=== PATIENT | female | born 1995 | race Caucasian/White ===

== ENCOUNTER 2017-03-04 06:04 | Inpatient (IN) ==
[2017-03-04] MEDS ORDERED: PITOCIN 30 UNITS/LR 30 UNITS/500 ML IV.SOLN IV SCH (06:15)
[2017-03-04] MEDS ORDERED: PEPCID PO PRN (06:15)
[2017-03-04] MEDS ORDERED: PEPCID IV PRN (06:15)
[2017-03-04] MEDS ORDERED: ZOFRAN IV PRN (06:15)
[2017-03-04] MEDS ORDERED: LR 1,000 ML IV SCH (06:15)
[2017-03-04] MEDS ORDERED: KEFZOL 1 GM/D5W 1 GM/50 ML IVPB IV PRN (06:15)
[2017-03-04] MEDS ORDERED: STADOL IV PRN (06:15)
[2017-03-04] MEDS ORDERED: SODIUM CHLORIDE 0.9% INJ SCH (06:15)
[2017-03-04] MEDS ORDERED: TYLENOL PO PRN (06:15)
[2017-03-04] MEDS ORDERED: LR 1,000 ML ONE (06:23)
[2017-03-04 06:45] LABS: URINE SOURCE VOIDED
[2017-03-04 06:45] LABS: MANUAL DIFF NEEDED? NO
[2017-03-04 06:51] LABS: BASO% 0.4 % (0.0-0.8); EOS# 0.36 X1000 (0.0-0.7); EOS% 3.2 % (0.0-10.0); HEMATOCRIT 36.2 % (37.0-47.0); HEMOGLOBIN 11.8 g/dL (12.0-16.0); IMM GRAN# 0.09 X1000 (0.0-0.04); IMM GRAN% 0.8 % (0.0-0.5); LYMPH# 2.06 X1000 (1.2-3.4); LYMPH% 18.3 % (20.5-51.1); MCH 30.3 PG (27-31); MCHC 32.6 g/dL (33-37); MCV 92.8 FL (81-99); MONO# 0.93 X1000 (0.11-0.59); MONO% 8.3 % (1.7-9.3); MPV 10.3 FL (7.4-10.4); PLT 149 X1000 (130-400)
[2017-03-04 07:07] LABS: BILIRUBIN URINE NEGATIVE (NEGATIVE); BLOOD URINE NEGATIVE (NEGATIVE); CLARITY SL. CLOUDY (CLEAR); COLOR YELLOW; GLUCOSE URINE NEGATIVE (NEGATIVE); LEUKOCYTES URINE 2+ (NEGATIVE); NITRITE URINE NEGATIVE (NEGATIVE); PROTEIN URINE NEGATIVE (NEGATIVE); SP GRAVITY URINE 1.015; UROBILINOGEN URINE NORMAL
[2017-03-04] MEDS ORDERED: FENTANYL-BUPIV-NS 2 MCG-0.1% 200 ML EPIDURAL PRN (07:57)
[2017-03-04] MEDS ORDERED: XYLOCAINE-MPF 1% INJ ONE (08:00)
[2017-03-04] MEDS ORDERED: MINERAL OIL ONE (12:45)
[2017-03-04] MEDS ORDERED: XYLOCAINE-MPF 1% ONE (12:46)
[2017-03-04] MEDS ORDERED: NORCO-5 PO PRN (13:10)
[2017-03-04] MEDS ORDERED: NORCO-10 PO PRN (13:10)
[2017-03-04] MEDS ORDERED: PITOCIN 30 UNITS/LR 30 UNITS/500 ML IV.SOLN IV ONE (13:10)
[2017-03-04] MEDS ORDERED: BENADRYL IV PRN (13:10)
[2017-03-04] MEDS ORDERED: CYTOTEC PO PRN (13:10)
[2017-03-04] MEDS ORDERED: PITOCIN 20 UNITS/LR 20 UNITS/1,000 ML IV.SOLN IV SCH (13:10)
[2017-03-04] MEDS ORDERED: BOOSTRIX VACCINE IM ONE (13:10)
[2017-03-04] MEDS ORDERED: MINERAL OIL PO PRN (13:10)
[2017-03-04] MEDS ORDERED: PERI MEDS (DERMOPLAST/NUPERCAINAL/TUCKS) MISC PRN (13:10)
[2017-03-04] MEDS ORDERED: PITOCIN IM PRN (13:10)
[2017-03-04] MEDS ORDERED: PERCOCET-10 PO PRN (13:10)
[2017-03-04] MEDS ORDERED: M-M-R II VACCINE SUBQ ONE (13:10)
[2017-03-04] MEDS ORDERED: HYDROXYZINE IM PRN (13:10)
[2017-03-04] MEDS ORDERED: HYDROXYZINE PO PRN (13:10)
[2017-03-04] MEDS ORDERED: AMBIEN PO PRN (13:10)
[2017-03-04] MEDS ORDERED: XYLOCAINE-MPF 1% INJ PRN (13:10)
[2017-03-04] MEDS ORDERED: PERCOCET-5 PO PRN (13:10)
[2017-03-04] MEDS ORDERED: MOTRIN PO PRN (13:10)
[2017-03-04] MEDS ORDERED: BENADRYL PO PRN (13:10)
[2017-03-04] MEDS: PERICOLACE PO SCH (20:37)
[2017-03-05 06:31] LABS: MANUAL DIFF NEEDED? NO
[2017-03-05 06:45] LABS: BASO% 0.3 % (0.0-0.8); EOS# 0.34 X1000 (0.0-0.7); EOS% 2.2 % (0.0-10.0); HEMATOCRIT 35.7 % (37.0-47.0); HEMOGLOBIN 11.4 g/dL (12.0-16.0); IMM GRAN# 0.07 X1000 (0.0-0.04); IMM GRAN% 0.4 % (0.0-0.5); LYMPH# 2.05 X1000 (1.2-3.4); LYMPH% 13.1 % (20.5-51.1); MCH 30.2 PG (27-31); MCHC 31.9 g/dL (33-37); MCV 94.4 FL (81-99); MONO# 1.36 X1000 (0.11-0.59); MONO% 8.7 % (1.7-9.3); MPV 10.6 FL (7.4-10.4); NEUT% 75.3 % (42.2-75.2); PLT 164 X1000 (130-400); RBC 3.78 XMIL (4.2-5.4)
[2017-03-05] MEDS: PERICOLACE PO SCH (20:49)
[2017-03-06 07:38] VITALS: BP 105/68
== END 2017-03-06 12:30 | disposition home or self-care (01) ==
LOC: P.LD 06:04 → P.WC 16:56
PROVIDERS: ADMIT Obstetrics & Gynecology; ATTEND Obstetrics & Gynecology